=== PATIENT | female | born 1965 | race Caucasian/White ===

== ENCOUNTER 2017-02-17 07:44 | Inpatient (IN) | payer OTHER ==
[~2017-02-17] VITALS: Ht 170.2 cm; Wt 107.9 kg
[~2017-02-17 07:44] MED LIST: FENTANYL PF 250 MCG/5ML ONE; KETAMINE 10 MG/ML, 20ML ONE; LIDOCAINE-MPF 2% ,5ML ONE; MIDAZOLAM 1 MG/ML, 2ML ONE; PROPOFOL 50 ML ONE
[2017-02-17] MEDS ORDERED: DEXAMETHASONE 4 MG/ML, 1ML ONE (07:57)
[2017-02-17] MEDS ORDERED: LIDOCAINE GEL 2%, 5ML ONE (07:57)
[2017-02-17] MEDS ORDERED: CEFAZOLIN 1,000 MG ONE (07:57)
[2017-02-17] MEDS ORDERED: ONDANSETRON 2MG/ML, 2ML ONE (07:57)
[2017-02-17] MEDS ORDERED: PROPOFOL 10 MG/ML, 20ML ONE ×4 (07:57→12:41)
[2017-02-17] MEDS ORDERED: LIDOCAINE-MPF 2% ,5ML ONE ×3 (07:57→11:58)
[2017-02-17] MEDS ORDERED: PHENYLEPHRINE 10 MG/ML ONE ×2 (08:06)
[2017-02-17] MEDS ORDERED: EPHEDRINE 50 MG/ML, 1ML ONE (08:06)
[2017-02-17 08:25] VITALS: BP 122/87
[2017-02-17] MEDS ORDERED: LACTATED RINGERS 1,000 ML IV SCH (08:29)
[2017-02-17] MEDS ORDERED: BUPIVACAINE/PF 0.5% ONE (09:01)
[2017-02-17] MEDS ORDERED: THROMBIN 20,000 UNIT VIAL TP ONE ×2 (09:01→11:27)
[2017-02-17] MEDS ORDERED: BACITRACIN ZINC OINT 500U/GM, 0.9 GM ONE (09:01)
[2017-02-17] MEDS ORDERED: ROSU5TAB PO (09:02)
[2017-02-17] MEDS ORDERED: FLUN25SP NAS (09:02)
[2017-02-17] MEDS ORDERED: MORP15TA PO (09:02)
[2017-02-17] MEDS ORDERED: ACID1TAB PO (09:02)
[2017-02-17] MEDS ORDERED: FEXO1TAB29 PO (09:02)
[2017-02-17] MEDS ORDERED: FURO20TA3 PO (09:02)
[2017-02-17] MEDS ORDERED: SOY LECITHIN PO-COUM (09:02)
[2017-02-17] MEDS ORDERED: MONT10TA6 PO (09:02)
[2017-02-17] MEDS ORDERED: EPINEPHRINE 1 MG/ML, 1ML ONE (09:02)
[2017-02-17] MEDS ORDERED: QUET300T5 PO (09:02)
[2017-02-17] MEDS ORDERED: ALPR0.254 PO (09:02)
[2017-02-17] MEDS ORDERED: PROP160C PO (09:02)
[2017-02-17] MEDS ORDERED: ONDA4TAB7 PO (09:02)
[2017-02-17] MEDS ORDERED: ESZO2TAB22 PO (09:02)
[2017-02-17] MEDS ORDERED: OMEG-123 PO (09:02)
[2017-02-17] MEDS ORDERED: PREG150C PO (09:02)
[2017-02-17] MEDS ORDERED: OLOP2.5D5 EACHEYE (09:02)
[2017-02-17] MEDS ORDERED: ASCO10004 PO (09:02)
[2017-02-17] MEDS ORDERED: ELET20TA PO (09:02)
[2017-02-17] MEDS ORDERED: HYPO40SP EACHEYE (09:02)
[2017-02-17] MEDS ORDERED: MULT1TAB9 PO (09:02)
[2017-02-17] MEDS ORDERED: HYDR25TA11 PO (09:02)
[2017-02-17] MEDS ORDERED: ESTR10TA9 PO (09:02)
[2017-02-17] MEDS ORDERED: OXYC1TAB8 PO (09:02)
[2017-02-17] MEDS ORDERED: POTA10TA12 PO (09:02)
[2017-02-17] MEDS ORDERED: UBID100C41 PO (09:02)
[2017-02-17] MEDS ORDERED: VITA200C7 PO (09:02)
[2017-02-17] MEDS ORDERED: LANS15CA60 PO (09:02)
[2017-02-17] MEDS ORDERED: CALC1CAP8 PO (09:02)
[2017-02-17] MEDS ORDERED: RED600CA2 PO (09:02)
[2017-02-17] MEDS ORDERED: LIFI1DRO EACHEYE (09:02)
[2017-02-17] MEDS ORDERED: TIZA4TAB9 PO (09:02)
[2017-02-17] MEDS ORDERED: LEVO150T PO (09:02)
[2017-02-17] MEDS ORDERED: VITA1CAP PO (09:02)
[2017-02-17] MEDS ORDERED: SERT25TA PO (09:02)
[2017-02-17] MEDS ORDERED: BACITRACIN 50,000 UNIT ONE (09:02)
[2017-02-17] MEDS ORDERED: SUCCINYLCHOLINE 20 MG/ML, 10ML ONE (09:25)
[2017-02-17] MEDS ORDERED: HYDROmorphone 2 MG/ML, 1ML ONE (09:53)
[2017-02-17] MEDS ORDERED: FENTANYL PF 100 MCG/2ML ONE ×2 (10:04→13:31)
[2017-02-17] MEDS ORDERED: PROMETHAZINE 25 MG/ML, 1ML IV PRN (11:00)
[2017-02-17] MEDS ORDERED: MEPERIDINE/PF 25MG/0.5ML IVPush PRN (11:00)
[2017-02-17] MEDS ORDERED: hydrALAzine 20 MG/ML, 1ML IV PRN (11:00)
[2017-02-17] MEDS ORDERED: LORazepam 2 MG/ML, 1ML IVPush PRN (11:00)
[2017-02-17] MEDS ORDERED: LABETALOL 5MG/ML, 20ML IV PRN (11:00)
[2017-02-17] MEDS ORDERED: ONDANSETRON 2MG/ML, 2ML IVPush PRN (11:00)
[2017-02-17] MEDS ORDERED: HYDROmorphone 1 MG/ML, 1ML IV PRN (11:00)
[2017-02-17] MEDS ORDERED: OXYcodone 5 MG/5 ML ORAL.SOL UDC PO PRN (11:00)
[2017-02-17] MEDS ORDERED: ACETAMINOPHEN 325 MG TABLET PO PRN (11:00)
[2017-02-17] MEDS ORDERED: ALBUTEROL/IPRATROPIUM 2.5MG/0.5MG, 3 ML NPPB PRN (11:00)
[2017-02-17] MEDS ORDERED: DIAZEPAM 5 MG/ML, 2ML IVPush PRN (11:00)
[2017-02-17] MEDS ORDERED: MIDAZOLAM 1 MG/ML, 2ML IV PRN (11:00)
[2017-02-17] MEDS ORDERED: PROPOFOL 50 ML ONE (11:10)
[2017-02-17] MEDS ORDERED: HYDROmorphone PCA 30 MG/30 ML ONE (13:15)
[2017-02-17] MEDS ORDERED: HYDROmorphone PCA 30 MG/30 ML IV PRN (13:30)
[2017-02-17] MEDS ORDERED: OXYcodone 5 MG/5 ML ORAL.SOL UDC ONE (13:31)
[2017-02-17] MEDS ORDERED: ACETAMINOPHEN 650 MG/20.3 ML UDC ONE (13:33)
[2017-02-17] MEDS: FENTANYL PF 100 MCG/2ML IV PRN ×2 (13:39→13:57)
[2017-02-17 15:00] VITALS: BP 118/76
[2017-02-17] MEDS ORDERED: PROMETHAZINE 25 MG/ML, 1ML IM PRN (15:30)
[2017-02-17] MEDS ORDERED: DIPHENHYDRAMINE 50 MG/ML, 1ML IM PRN (15:30)
[2017-02-17] MEDS ORDERED: ONDANSETRON 2MG/ML, 2ML IV PRN (15:30)
[2017-02-17] MEDS ORDERED: DIPHENHYDRAMINE 50 MG CAPSULE PO PRN (15:30)
[2017-02-17] MEDS ORDERED: MAGNESIUM HYDROXIDE 8%, 30ML UDC PO PRN (15:30)
[2017-02-17] MEDS ORDERED: BISACODYL 10 MG SUPP PR PRN (15:30)
[2017-02-17] MEDS ORDERED: ONDANSETRON 4 MG TABLET PO PRN (16:00)
[2017-02-17] MEDS ORDERED: HOMEMED SHEET MC SCH (16:00)
[2017-02-17] MEDS: CEFAZOLIN PMX 1GM/50ML 50 ML IVPB SCH ×2 (16:22→23:59)
[2017-02-17] MEDS: TIZANIDINE 4MG TABLET PO SCH ×2 (16:22→21:36)
[2017-02-17] MEDS: NS + 20MEQ KCL 1,000 ML IV SCH (16:22)
[2017-02-17 20:01] VITALS: BP 99/58
[2017-02-17] MEDS: PROPRANOLOl 80 MG CAP.SA.24H PO SCH (21:00)
[2017-02-17] MEDS ORDERED: LORATADINE/PSE 5/120MG TAB.ER.12H PO PRN (21:00)
[2017-02-17] MEDS ORDERED: morphine SULFATE ORAL.CONC 20 MG/ML ONE (21:02)
[2017-02-17] MEDS: morphine SULFATE 15 MG TAB.IR PO SCH (21:35)
[2017-02-17] MEDS: CHOLECALCIFEROL 400 UNITS TABLET PO SCH (21:36)
[2017-02-17] MEDS: CALCIUM CARBONATE 500 MG TAB.CHEW PO SCH (21:36)
[2017-02-17] MEDS: FLUTICASONE NASAL SPRAY 16GM NAS SCH (21:36)
[2017-02-17] MEDS: SERTRALINE 50MG TABLET PO SCH (21:36)
[2017-02-17] MEDS: QUETIAPINE 100MG TABLET PO SCH (21:37)
[2017-02-17] MEDS: ATORVASTATIN 10 MG TABLET PO SCH (21:37)
[2017-02-17] MEDS: PREGABALIN 150 MG CAPSULE PO SCH (21:37)
[2017-02-17] MEDS: POTASSIUM CHLORIDE 10 MEQ TABLET.ER PO SCH (21:37)
[2017-02-17] MEDS: BETAMETHASONE DIPRO CRM 0.05%, 15GM TP SCH (22:40)
[2017-02-18 00:16] VITALS: BP 91/56
[2017-02-18 03:43] VITALS: BP 97/63
[2017-02-18] MEDS: NS + 20MEQ KCL 1,000 ML IV SCH ×2 (05:34→17:27)
[2017-02-18] MEDS: TIZANIDINE 4MG TABLET PO SCH ×4 (06:07→20:52)
[2017-02-18] MEDS: morphine SULFATE 15 MG TAB.IR PO SCH ×4 (06:07→20:58)
[2017-02-18] MEDS: LEVOTHYROXINE 150 MCG TABLET PO SCH (06:07)
[2017-02-18 06:18] LABS: HEMATOCRIT 35.1 % (34.6-47.8); HEMOGLOBIN 11.5 g/dL (11.7-16.4); WHITE BLOOD COUNT 8.4 x10^3/uL (3.4-10)
[2017-02-18 06:32] LABS: BLOOD UREA NITROGEN 20 mg/dL (7-18)
[2017-02-18 08:30] VITALS: BP 102/59
[2017-02-18] MEDS: BETAMETHASONE DIPRO CRM 0.05%, 15GM TP SCH ×2 (08:31→20:55)
[2017-02-18] MEDS: FLUTICASONE NASAL SPRAY 16GM NAS SCH ×2 (08:31→20:54)
[2017-02-18] MEDS: CALCIUM CARBONATE 500 MG TAB.CHEW PO SCH ×2 (08:34→20:52)
[2017-02-18] MEDS: CHOLECALCIFEROL 400 UNITS TABLET PO SCH ×2 (08:34→20:52)
[2017-02-18] MEDS: MONTELUKAST 10 MG TABLET PO SCH (08:35)
[2017-02-18] MEDS: POTASSIUM CHLORIDE 10 MEQ TABLET.ER PO SCH ×2 (08:35→20:52)
[2017-02-18] MEDS: ESTRADIOL 1 MG TABLET PO SCH (08:35)
[2017-02-18] MEDS: PANTOPROZOLE 40MG TABLET PO SCH (08:35)
[2017-02-18] MEDS: FUROSEMIDE 20 MG TABLET PO SCH (08:35)
[2017-02-18] MEDS: PREGABALIN 150 MG CAPSULE PO SCH ×2 (08:35→20:52)
[2017-02-18] MEDS: SENNA/DOCUSATE TABLET PO SCH (08:35)
[2017-02-18] MEDS ORDERED: HYDROmorphone 2 MG/ML, 1ML IM PRN (09:00)
[2017-02-18] MEDS ORDERED: RELPAX HOMEMEDPO PRN (09:00)
[2017-02-18] MEDS: OXYcodone/APAP 10/325MG TABLET PO PRN ×2 (13:06→17:27)
[2017-02-18 14:30] VITALS: BP 103/57
[2017-02-18 18:27] VITALS: BP 99/64
[2017-02-18] MEDS: QUETIAPINE 100MG TABLET PO SCH (20:53)
[2017-02-18] MEDS: SERTRALINE 50MG TABLET PO SCH (20:53)
[2017-02-18] MEDS: ATORVASTATIN 10 MG TABLET PO SCH (20:53)
[2017-02-18] MEDS: PROPRANOLOl 80 MG CAP.SA.24H PO SCH (20:58)
[2017-02-18] MEDS ORDERED: ZOLPIDEM 5MG TABLET PO PRN ×2 (21:00)
[2017-02-19 00:20] VITALS: BP 90/59
[2017-02-19] MEDS: OXYcodone/APAP 10/325MG TABLET PO PRN (04:57)
[2017-02-19] MEDS: LEVOTHYROXINE 150 MCG TABLET PO SCH (06:22)
[2017-02-19] MEDS: TIZANIDINE 4MG TABLET PO SCH (06:22)
[2017-02-19] MEDS: morphine SULFATE 15 MG TAB.IR PO SCH (06:25)
[2017-02-19] MEDS: NS + 20MEQ KCL 1,000 ML IV SCH (06:25)
[2017-02-19 07:45] VITALS: BP 100/63
[2017-02-19] MEDS: CHOLECALCIFEROL 400 UNITS TABLET PO SCH (07:47)
[2017-02-19] MEDS: CALCIUM CARBONATE 500 MG TAB.CHEW PO SCH (07:47)
[2017-02-19] MEDS: MONTELUKAST 10 MG TABLET PO SCH (07:48)
[2017-02-19] MEDS: SENNA/DOCUSATE TABLET PO SCH (07:48)
[2017-02-19] MEDS: POTASSIUM CHLORIDE 10 MEQ TABLET.ER PO SCH (07:49)
[2017-02-19] MEDS: FUROSEMIDE 20 MG TABLET PO SCH (07:49)
[2017-02-19] MEDS: PREGABALIN 150 MG CAPSULE PO SCH (07:49)
[2017-02-19] MEDS: PANTOPROZOLE 40MG TABLET PO SCH (07:49)
[2017-02-19] MEDS: ESTRADIOL 1 MG TABLET PO SCH (07:49)
[2017-02-19] MEDS: BETAMETHASONE DIPRO CRM 0.05%, 15GM TP SCH (07:50)
[2017-02-19] MEDS: FLUTICASONE NASAL SPRAY 16GM NAS SCH (07:50)
[2017-02-19] MEDS ORDERED: TIZA4TAB9 PO (08:47)
[2017-02-19] MEDS ORDERED: OXYC-307 PO (09:00)
[2017-02-19] MEDS ORDERED: MORP-52 PO (09:01)
[2017-02-19] MEDS ORDERED: DOCU-131 PO (09:02)
== END 2017-02-19 10:18 | disposition home or self-care (01) | DRG 460 ==
LOC: ORIP 07:44 → 4NOR 14:56 → DCLOUNGE 02-19 09:55
PROVIDERS: ADMIT Neurological Surgery; ATTEND Neurological Surgery
PROC: 01NB0ZZ Release Lumbar Nerve, Open Approach (ICD-10-PCS; 2017-02-17)
PROC: 0SG00AJ Fusion of Lumbar Vertebral Joint with Interbody Fusion Device, Posterior Approach, Anterior Column, Open Approach (ICD-10-PCS; principal; 2017-02-17 09:00)
DX: M43.16 Spondylolisthesis, lumbar region (principal); F41.1 Generalized anxiety disorder; M48.061 Spinal stenosis, lumbar region without neurogenic claudication; Z88.2 Allergy status to sulfonamides; Z88.8 Allergy status to other drugs, medicaments and biological substances; K21.9 Gastro-esophageal reflux disease without esophagitis
CPT/HCPCS: 36415; 72100; 80048; 85025; 86850; 86900; C1713; J0171; J0690; J1100; J1170; J2250; J2405; J2704; J3010; J3480; J3490; C1762; J0330; J2370; J7120; Q0177